=== PATIENT | female | born 1985 | race African-American/Black ===

== ENCOUNTER 2021-05-04 09:51 | Emergency (ER) | payer OTHER ==
[2021-05-04] MEDS ORDERED: KETOROLAC 30 MG/ML VIAL IVP STA (10:12)
[2021-05-04] MEDS ORDERED: HYDROmorphone 1 MG/ML CARPUJECT IVP STA (10:12)
--- NOTE | 2021-05-04 10:14 | ED Physician Documentation ---
PD HPI ABD PAIN - Stated complaint Stated Complaint: ABD/BACK PX - Chief complaint Chief Complaint: Abd Pain - History obtained from History obtained from: Patient - Additional information Additional information: Suddenly developed right lower quadrant and pelvic pain radiating to the low back at 815 this morning. She was not doing anything specific at the time. There was no injury. It is not associated with nausea or specific urinary complaints although the pain gets slightly better when she urinates. No history of kidney stone or ovarian cyst. Mirena IUD in place, does not really have men ses per se. Review of Systems Ten Systems: 10 systems reviewed and negative Constitutional: reports: Reviewed and negative Eyes: reports: Reviewed and negative Ears: reports: Reviewed and negative PD PAST MEDICAL HISTORY - Present Medications Home Medications: Ambulatory Orders Medication Instructions Recorded Confirmed HYDROcod/ACETAM 5/325 [[place] 5/325] 1 - 2 tab PO Q6H PRN #10 tablet 05/04/21 Ibuprofen [Motrin] 800 mg PO Q8H PRN #10 tablet 05/04/21 Loratadine [Claritin] 10 mg PO DAILY 05/04/21 05/04/21 - Allergies Allergies/Adverse Reactions: Allergies Allergy/AdvReac Type Severity Reaction Status Date / Time hydrocortisone Allergy Hives Verified 05/04/21 09:59 PD ED PE NORMAL - Vitals Vital signs reviewed: Yes - General General: Alert and oriented X 3, Other (Appears slightly uncomfortable) - HEENT HEENT: PERRL, EOMI - Neck Neck: Supple, no meningeal sign, No bony TTP - Cardiac Cardiac: RRR, No murmur - Respiratory Respiratory: No respiratory distress, Clear bilaterally - Abdomen Abdomen: Other (Mild tenderness to the right pelvic area and low back without flank tenderness.) - Back Back: No CVA TTP, No spinal TTP - Derm Derm: Normal color, Warm and dry - Extremities Extremities: No edema, No calf tenderness / cord - Neuro Neuro: Alert and oriented X 3, Normal speech Results - Vitals Vitals: Vital Signs - 24 hr 05/04/21 09:57 Temperature 36.2 C L Heart Rate 81 Respiratory 14 Rate Blood Pressure 131/80 H O2 Saturation 100 Oxygen O2 Source Room air - Labs Labs: Laboratory Tests 05/04/21 05/04/21 05/04/21 10:10 10:19 10:19 WBC 5.8 RBC 4.39 Hgb 13.8 Hct 40.5 MCV 92.3 MCH 31.4 H MCHC 34.1 RDW 12.4 Plt Count 203 MPV 10.2 Neut # (Auto) 4.2 Lymph # (Auto) 1.2 L [place] # (Auto) 0.3 Eos # (Auto) 0.0 Baso # (Auto) 0.0 Absolute Nucleated RBC 0.00 Nucleated RBC % 0.0 Sodium 139 Potassium 3.8 Chloride 102 Carbon Dioxide 28 Anion Gap 9.0 BUN 12 Creatinine 0.7 Estimated GFR (MDRD) 114 Glucose 105 H Calcium 9.7 Total Bilirubin 0.7 AST 23 ALT 25 Alkaline Phosphatase 52 Total Protein 7.7 Albumin 4.7 Globulin 3.0 Albumin/Globulin Ratio 1.6 Lipase 34 Urine Color YELLOW Urine Clarity CLEAR Urine pH 7.0 Ur Specific [place] 1.015 Urine Protein NEGATIVE Urine Glucose (UA) NEGATIVE Urine Ketones NEGATIVE Urine Occult Blood NEGATIVE Urine Nitrite NEGATIVE Urine Bilirubin NEGATIVE Urine Urobilinogen 0.2 (NORMAL) Ur Leukocyte Esterase NEGATIVE Ur Microscopic Review NOT INDICATED Urine Culture Comments NOT INDICATED Urine HCG, Qual NEGATIVE PD MEDICAL DECISION MAKING - ED course ED course: 36-year-old woman with sudden onset pelvic pain radiating to the back, most consistent with either renal colic or ovarian cyst. Labs and CT were unremarkable. Pain-free or almost pain-free after meds here. Departure - Departure Disposition: 01 Home, Self Care Clinical Impression: Abdominal pain Qualifiers: Abdominal location: right lower quadrant Qualified Code(s): R10.31 - Right lower quadrant pain Condition: Good Record reviewed to determine appropriate education?: Yes Instructions: ED Pelvic Pain [facility] Prescriptions: Ibuprofen [Motrin] 800 mg PO Q8H PRN #10 tablet PRN Reason: PAIN &/OR FEVER HYDROcod/ACETAM 5/325 [[place] 5/325] 1 - 2 tab PO Q6H PRN #10 tablet PRN Reason: Pain Comments: As discussed, its not exactly clear what caused the pain, could have been a tiny kidney stone. You do have some small stones up in your kidneys but not in a location that should be bothering you. Return for any new or worsening symptoms. I am prescribing a short course of narcotic pain medication for you. These are potentially dangerous and addictive medications that should be used carefully. These medications may constipate you. Take an utlz-lwm-tulhqab stool softener (docusate) twice daily with plenty of water while taking these medications. If you go 24 hours without a bowel movement, take [id number] miralax, per package instructions. Do not drink or drive while taking these medications. If you received narcotic or sedating medications while in the emergency department, do not drive for 24 hours. Store this medication in a safe, secure place and out of reach of children. It is a violation of federal law to give or sell this medication to another person or to use in a manner other than prescribed. The ED will not refill narcotic prescriptions, including prescriptions lost or stolen. To dispose of unwanted medications: 1. [facility] [address] in [place] has a medication drop box. They accept prescription medications (in pill form) Tuesday through Tuesday 9:00 a.m. to 5:00 p.m. 2. [facility] [employer] [facility] accepts prescription medications (in pill form only) for disposal year round. Call for more information. 3. Contact the [facility] for the next [facility] sponsored prescription drug collection event. , [phone], or [phone]; Note that many narcotic pain relievers also contain Tylenol/acetaminophen. Please ensure that your total dose of acetaminophen from all sources does not exceed 3 g (3000 mg) per day. Forms: Activity restrictions
[2021-05-04 10:30] LABS: BASOPHILS % (AUTO) 0.3 %; EOSINOPHILS % (AUTO) 0.7 %; HCT - HEMATOCRIT 40.5 % (37.0-47.0); HGB - HEMOGLOBIN 13.8 g/dL (12.0-16.0); LYMPHOCYTES # (AUTO) 1.2 10^3/uL (1.5-3.5); LYMPHOCYTES % (AUTO) 21.2 %; MEAN CORPUSCULAR HEMOGLOBIN 31.4 pg (27.0-31.0); MEAN CORPUSCULAR HGB CONC 34.1 g/dL (32.0-36.0); MEAN CORPUSCULAR VOLUME 92.3 fL (81.0-99.0); MEAN PLATELET VOLUME 10.2 fL (7.9-10.8); MONOCYTES # (AUTO) 0.3 10^3/uL (0.0-1.0); MONOCYTES % (AUTO) 5.2 %; NEUTROPHILS # (AUTO) 4.2 10^3/uL (1.5-6.6); NEUTROPHILS % (AUTO) 72.4 %; PLT - PLATELET COUNT 203 10^3/uL (130-450); RED BLOOD COUNT 4.39 10^6/uL (4.20-5.40); RED CELL DISTRIBUTION WIDTH 12.4 % (12.0-15.0); WHITE BLOOD COUNT 5.8 x10^3/uL (4.8-10.8)
[2021-05-04 10:33] LABS: BILIRUBIN,URINE NEGATIVE (NEGATIVE); GLUCOSE, URINE (UA) NEGATIVE (NEGATIVE); KETONES,URINE (UA) NEGATIVE (NEGATIVE); LEUKOCYTE ESTERASE, URINE NEGATIVE (NEGATIVE); NITRITE,URINE NEGATIVE (NEGATIVE); OCCULT BLOOD,URINE NEGATIVE (NEGATIVE); PROTEIN,URINE NEGATIVE (NEGATIVE); UROBILINOGEN,URINE 0.2 (NORMAL) E.U./dL (NORMAL)
[2021-05-04 10:35] LABS: CLARITY,URINE CLEAR (CLEAR); HCG UR QUAL NEGATIVE
[2021-05-04 10:44] LABS: ALBUMIN 4.7 g/dL (3.2-5.5); ALBUMIN/GLOBULIN RATIO 1.6 (1.0-2.2); BILIRUBIN,TOTAL 0.7 mg/dL (0.2-1.0); CALCIUM 9.7 mg/dL (8.5-10.3); CREATININE 0.7 mg/dL (0.4-1.0); POTASSIUM 3.8 mmol/L (3.5-5.0); TOTAL PROTEIN 7.7 g/dL (6.7-8.2)
--- NOTE | 2021-05-04 11:07 | CT Report ---
PROCEDURE: Abdomen/Pelvis WO INDICATIONS: Right flank pain TECHNIQUE: Noncontrast 5 mm thick sections acquired from the diaphragms to the symphysis. 5 mm coronal and sagi ttal reformats were then performed. For radiation dose reduction, the following was used: automated exposure control, adjustment of mA and/or kV according to patient size. COMPARISON: None. FINDINGS: Image quality: Excellent. ABDOMEN: Lung bases: Lung bases are clear. Heart size is normal. Solid organs: The lack of IV contrast limits evaluation of the solid abdominal visceral structures. T here is a nonobstructing right renal calculus measuring 2 mm in the lower pole (series 3 image 31). P unctate calculus in the upper pole left kidney measuring less than 1 mm. No hydronephrosis or hydrour eter. No abnormal perinephric fat stranding. Normal unenhanced CT appearance of the liver, gallbladde r, spleen, adrenal glands, and pancreas. Peritoneum and bowel: Normal appendix. No abnormally dilated or thickened loop of bowel. No free air or pathologic free fluid. nodes and vessels: No retroperitoneal or mesenteric adenopathy by size criteria. Aorta and inferior vena cava are normal in caliber. Miscellaneous: No ventral hernias. PELVIS: Genitourinary: Bladder wall thickness is normal. Physiologic free fluid in the pelvis. IUD noted. G rossly unremarkable ovaries and uterus otherwise. Miscellaneous: No inguinal hernias or adenopathy. Bones: No suspicious bony lesions. No vertebral body compression fractures. IMPRESSION: Nonobstructing bilateral renal calculi. No findings of obstructive uropathy. Reviewed by: Dani Patino MD on 05/04/2021 11:06 AM PDT Approved by: Dani Patino MD on 05/04/2021 11:06 AM PDT Station ID: [id number]
[2021-05-04 11:59] VITALS: BP 102/63
== END 2021-05-04 11:40 | disposition home or self-care (01) ==
LOC: ED 09:51
DX: R10.31 Right lower quadrant pain (principal); M54.5 Low back pain; R10.2 Pelvic and perineal pain
CPT/HCPCS: 36415; 74176; 80053; 81003; 81025; 83690; 85025; 96374; 96375; 99284; J1170; 81001; 87086

== ENCOUNTER 2021-11-20 11:12 | Emergency (ER) | payer OTHER ==
[2021-11-20 12:04] LABS: BASOPHILS % (AUTO) 0.5 %; EOSINOPHILS # (AUTO) 0.1 10^3/uL (0.0-0.7); EOSINOPHILS % (AUTO) 2.2 %; HCT - HEMATOCRIT 39.5 % (37.0-47.0); LYMPHOCYTES # (AUTO) 1.5 10^3/uL (1.5-3.5); LYMPHOCYTES % (AUTO) 35.7 %; MEAN CORPUSCULAR HEMOGLOBIN 29.7 pg (27.0-31.0); MEAN CORPUSCULAR HGB CONC 32.9 g/dL (32.0-36.0); MEAN CORPUSCULAR VOLUME 90.4 fL (81.0-99.0); MEAN PLATELET VOLUME 10.8 fL (7.9-10.8); MONOCYTES # (AUTO) 0.4 10^3/uL (0.0-1.0); MONOCYTES % (AUTO) 10.1 %; NEUTROPHILS # (AUTO) 2.1 10^3/uL (1.5-6.6); NEUTROPHILS % (AUTO) 51.3 %; PLT - PLATELET COUNT 229 10^3/uL (130-450); RED BLOOD COUNT 4.37 10^6/uL (4.20-5.40); RED CELL DISTRIBUTION WIDTH 12.2 % (12.0-15.0); WHITE BLOOD COUNT 4.1 x10^3/uL (4.8-10.8)
[2021-11-20 12:12] LABS: BILIRUBIN,URINE NEGATIVE (NEGATIVE); GLUCOSE, URINE (UA) NEGATIVE (NEGATIVE); KETONES,URINE (UA) NEGATIVE (NEGATIVE); LEUKOCYTE ESTERASE, URINE NEGATIVE (NEGATIVE); NITRITE,URINE NEGATIVE (NEGATIVE); OCCULT BLOOD,URINE NEGATIVE (NEGATIVE); PROTEIN,URINE NEGATIVE (NEGATIVE); UROBILINOGEN,URINE 0.2 (NORMAL) E.U./dL (NORMAL)
[2021-11-20 12:13] LABS: CLARITY,URINE CLEAR (CLEAR)
[2021-11-20 12:15] LABS: HCG UR QUAL NEGATIVE
[2021-11-20 12:16] LABS: ALBUMIN 4.4 g/dL (3.2-5.5); ALBUMIN/GLOBULIN RATIO 1.3 (1.0-2.2); BILIRUBIN,TOTAL 0.6 mg/dL (0.2-1.0); CALCIUM 9.6 mg/dL (8.5-10.3); CREATININE 0.7 mg/dL (0.4-1.0); POTASSIUM 3.7 mmol/L (3.5-5.0); TOTAL PROTEIN 7.9 g/dL (6.7-8.2)
--- NOTE | 2021-11-20 12:34 | ED Physician Documentation ---
PD HPI FOCAL NEURO - Stated complaint Stated Complaint: DIZZYNESS - Chief complaint Chief Complaint: Neuro - History obtained from History obtained from: Patient - Additional information Additional information: Previously healthy 36-year-old woman. She abruptly stopped Prozac a month ago. She is been in her usual state of health otherwise though but this morning feels like she is floating. Not necessarily dizziness per se just feels like she is walking on air. There is no associated headaches or focal neurologic symptoms. No nausea. She was congested a few days ago and took Tiffany-D but that has cleared up. Nobody in the house is feeling sick. She does have gas heat. Of note she chronically gets poor sleep and only got about 3 hours last night. Review of Systems Ten Systems: 10 systems reviewed and negative Constitutional: denies: Fever, Chills Throat: reports: Reviewed and negative Cardiac: reports: Reviewed and negative Respiratory: reports: Reviewed and negative PD PAST MEDICAL HISTORY - Present Medications Home Medications: Ambulatory Orders Medication Instructions Recorded Confirmed HYDROcod/ACETAM 5/325 [[place] 5/325] 1 - 2 tab PO Q6H PRN #10 tablet 05/04/21 Ibuprofen [Motrin] 800 mg PO Q8H PRN #10 tablet 05/04/21 Loratadine [Claritin] 10 mg PO DAILY 05/04/21 05/04/21 - Allergies Allergies/Adverse Reactions: Allergies Allergy/AdvReac Type Severity Reaction Status Date / Time hydrocortisone Allergy Hives Verified 11/20/21 11:20 PD ED PE NORMAL - Vitals Vital signs reviewed: Yes - General General: Alert and oriented X 3, No acute distress - HEENT HEENT: PERRL, EOMI - Neck Neck: Supple, no meningeal sign, No bony TTP - Cardiac Cardiac: RRR, No murmur - Respiratory Respiratory: No respiratory distress, Clear bilaterally - Abdomen Abdomen: Normal bowel sounds, Soft, Non tender - Back Back: No CVA TTP, No spinal TTP - Extremities Extremities: No edema, No calf tenderness / cord - Neuro Neuro: Alert and oriented X 3, No motor deficit, No sensory deficit, Normal speech, Other (NIH stroke scale is 0) Results - Vitals Vitals: Vital Signs - 24 hr 11/20/21 11/20/21 11/20/21 11:17 12:09 13:16 Temperature 36.9 C Heart Rate 81 80 75 Respiratory 11 L 20 17 Rate Blood Pressure 128/87 H 116/77 106/74 O2 Saturation 99 100 100 11/20/21 13:22 Temperature Heart Rate 80 Respiratory 18 Rate Blood Pressure 106/74 O2 Saturation 98 Oxygen O2 Source Room air - EKG (time done) 1133 Rate: Rate (enter#) (72) Rhythm: NSR [place]: Normal Intervals: Prolonged [place] QRS: Normal Ischemia: Normal ST segments - Labs Labs: Laboratory Tests 11/20/21 11/20/21 11/20/21 11:45 11:45 11:53 WBC 4.1 L RBC 4.37 Hgb 13.0 Hct 39.5 MCV 90.4 MCH 29.7 MCHC 32.9 RDW 12.2 Plt Count 229 MPV 10.8 Neut # (Auto) 2.1 Lymph # (Auto) 1.5 [place] # (Auto) 0.4 Eos # (Auto) 0.1 Baso # (Auto) 0.0 Absolute Nucleated RBC 0.00 Nucleated RBC % 0.0 VBG Total Hgb VBG Oxyhemoglobin VBG Carboxyhemoglobin VBG Methemoglobin Sodium 137 Potassium 3.7 Chloride 99 L Carbon Dioxide 29 Anion Gap 9.0 BUN 14 Creatinine 0.7 Estimated GFR (MDRD) 114 Glucose 89 Calcium 9.6 Total Bilirubin 0.6 AST 22 ALT 30 Alkaline Phosphatase 47 Total Protein 7.9 Albumin 4.4 Globulin 3.5 Albumin/Globulin Ratio 1.3 Lipase 36 Urine Color YELLOW Urine Clarity CLEAR Urine pH 7.0 Ur Specific [place] 1.010 Urine Protein NEGATIVE Urine Glucose (UA) NEGATIVE Urine Ketones NEGATIVE Urine Occult Blood NEGATIVE Urine Nitrite NEGATIVE Urine Bilirubin NEGATIVE Urine Urobilinogen 0.2 (NORMAL) Ur Leukocyte Esterase NEGATIVE Ur Microscopic Review NOT INDICATED Urine Culture Comments NOT INDICATED Urine HCG, Qual NEGATIVE 11/20/21 12:44 WBC RBC Hgb Hct MCV MCH MCHC RDW Plt Count MPV Neut # (Auto) Lymph # (Auto) [place] # (Auto) Eos # (Auto) Baso # (Auto) Absolute Nucleated RBC Nucleated RBC % VBG Total Hgb 13.4 VBG Oxyhemoglobin 46 L VBG Carboxyhemoglobin 0.9 VBG Methemoglobin 0.4 Sodium Potassium Chloride Carbon Dioxide Anion Gap BUN Creatinine Estimated GFR (MDRD) Glucose Calcium Total Bilirubin AST ALT Alkaline Phosphatase Total Protein Albumin Globulin Albumin/Globulin Ratio Lipase Urine Color Urine Clarity Urine pH Ur Specific [place] Urine Protein Urine Glucose (UA) Urine Ketones Urine Occult Blood Urine Nitrite Urine Bilirubin Urine Urobilinogen Ur Leukocyte Esterase Ur Microscopic Review Urine Culture Comments Urine HCG, Qual PD MEDICAL DECISION MAKING - ED course ED course: 36-year-old woman with very atypical dizziness but normal exam, unremarkable labs and vital signs and negative carbon monoxide testing. The only thing that stands out on her history and review of systems is very poor sleep last night, only 3 hours which may be causative. Departure - Departure Disposition: 01 Home, Self Care Clinical Impression: Dizziness Condition: Good Record reviewed to determine appropriate education?: Yes Instructions: ED Dizziness [facility] Comments: Rest the rest the day, try to get plenty of sleep tonight and going forward. Follow-up with your primary care physician. Return for new or worsening symptoms. Discharge Date/Time: 11/20/21 13:22
[2021-11-20 12:48] LABS: CARBOXYHEMOGLOBIN VENOUS 0.9 % (0-1.5); HEMOGLOBIN TOTAL, VENOUS WB 13.4 g/dL (12.0-18.0); METHEMOGLOBIN VENOUS 0.4 % (0-1.5)
[2021-11-20 13:17] VITALS: BP 106/74
== END 2021-11-20 13:22 | disposition home or self-care (01) ==
LOC: EDUNIT# → ED 11:12
DX: R42 Dizziness and giddiness (principal)
CPT/HCPCS: 36415; 80053; 81001; 81003; 81025; 82375; 83690; 85025; 87086; 93005; 99283

== ENCOUNTER 2022-12-07 07:31 | Outpatient (CLI) | payer OTHER ==
--- NOTE | 2022-12-08 11:42 | MRI Report ---
PROCEDURE: ANKLE WO - LT INDICATIONS: LEFT ANKLE/FOOT PAIN, HX LEFT ANKLE SURGERY TECHNIQUE: Noncontrast Magnetic Resonance Imaging (MRI) of the ankle/hindfoot was performed utilizing the follow ing sequences: sagittal T1 spin echo, sagittal T2 fast spin echo with fat saturation, axial PD fast s pin echo, axial T2 fast spin echo with fat saturation, coronal T1 spin echo, and coronal T2 fast spin echo with fat saturation. COMPARISON: None. FINDINGS: Image quality: Excellent. Bones and joints: No acute trabecular bone injury or fracture. No hindfoot coalition. The ankle mortise is maintained. No osteochondral defect is seen at the talar dome. No significant degenerative changes are seen in t he midfoot or hindfoot. Medial structures: The deltoid ligament and the spring ligament are intact. Mild tenosynovitis of the posterior tibialis tendon at the level of the medial malleolus. The flexor digitorum longus and flexor hallucis longus tendons are intact. The posterior tibial neurovascular bundle appears normal within the tarsal tunnel , without extrinsic mass effect. Lateral structures: Postsurgical scarring is seen in the lateral subcutaneous tissues. The anterior talofibular ligament appears heterogeneous and mildly indistinct, consistent with a remote prior grade 1-2 sprain. Some of the ligament fibers remain in continuity. The calcaneofibular ligament and posterior talofibular lig ament appear to be intact. The anterior and posterior tibiofibular ligaments are intact. Peroneal ten dons are normal in location. The tendons appear mildly heterogeneous, which may be related to prior s urgery or tendinosis. No tendon discontinuity is seen. The sinus tarsi demonstrates normal fatty sign al. Anterior structures: The tibialis anterior, extensor hallucis longus, and extensor digitorum longus tendons appear intact. Posterior and plantar structures: The Achilles tendon is intact. The medial and lateral bands of the plantar fascia are within normal l imits. No disproportionate atrophy of the abductor digiti minimi muscle. IMPRESSION: 1.Thickening and heterogeneity of the and anterior talofibular ligament may be secondary to prior pos tsurgical changes or a remote prior grade 2 sprain. No full-thickness ligament tear is seen. 2.Postsurgical changes versus mild tendinosis of the peroneus brevis and longus tendons. No recent te ndon tear is seen. 3.Mild posterior tibialis tenosynovitis with overlying soft tissue edema. Reviewed by: Terence Trujillo MD on 12/08/2022 11:40 AM PST Approved by: Terence Trujillo MD on 12/08/2022 11:40 AM PST Station ID: [id number]
== END 2022-12-07 07:32 | disposition home or self-care (01) ==
LOC: DI 07:31
PROVIDERS: ATTEND Student in an Organized Health Care Education/Training Program
DX: M25.572 Pain in left ankle and joints of left foot (principal); M65.9 Synovitis and tenosynovitis, unspecified